=== PATIENT | female | born 1970 | race Caucasian/White ===

== ENCOUNTER 2018-11-11 01:27 | Emergency (ER) | payer MEDICAID ==
[~2018-11-11] VITALS: Ht 167.6 cm; Wt 79.4 kg
[~2018-11-11 01:27] MED LIST: CELEXA40 MG PO; CHEMO DRUG; CLEOCIN HCL300 MG PO; HYDROCODONE-AP1 EA12 PO; NOLVADEX10 MG PO; PERCOCET 5-3251 EACH PO; VALIUM2 MG PO; ZOFRAN 4 MG ORAL4 M1 DIS; ZOFRAN ODT4 MG PO
[2018-11-11] MEDS ORDERED: HERCEPTIN150 MG (01:43)
[2018-11-11 02:07] LABS: ABSOLUTE BASOPHILS 0.1 thou/uL (0.0-0.2); ABSOLUTE EOSINOPHILS 0.2 thou/uL (0.0-0.7); ABSOLUTE LYMPHOCYTES 3.5 thou/uL (0.8-5.3); ABSOLUTE MONOCYTES 0.5 thou/uL (0.0-1.2); ABSOLUTE NEUTROPHILS 5.4 thou/uL (1.6-8.1); BASOPHILS 0.8 %; EOSINOPHILS 2.5 %; HEMATOCRIT 38.7 % (37.0-47.0); HEMOGLOBIN 13.4 gm/dL (12.0-15.0); LYMPHOCYTES 36.4 %; MCH 34.6 pg (26.0-34.0); MCHC 34.5 g/dL (28.0-37.0); MCV 100.1 fL (80.0-100.0); MONOCYTES 4.7 %; MPV 6.8 fl. (7.2-11.1); NUCLEATED RBCS 0 /100WBC; PLATELET COUNT* 274 thou/uL (150-400); POLYS 55.6 %; RBC 3.87 mil/uL (4.20-5.00); RDW-CV 12.4 % (10.5-14.5); WBC 9.7 thou/uL (4.0-11.0)
[2018-11-11 02:28] LABS: CALCIUM 9.3 mg/dL (8.5-10.1); CREATININE 0.9 mg/dL (0.6-1.3); POTASSIUM 3.5 mmol/L (3.5-5.1)
[2018-11-11 02:33] LABS: ALBUMIN 3.4 g/dL (3.4-5.0); TOTAL BILIRUBIN 0.4 mg/dL (<0.1-1.0); TOTAL PROTEIN 7.3 g/dL (6.4-8.2)
[2018-11-11] MEDS ORDERED: DEXAMETHASONE2 MG PO (03:02)
[2018-11-11] MEDS ORDERED: PERCOCET 5-3251 EACH PO (03:02)
[2018-11-11] MEDS ORDERED: ZOFRAN ODT4 MG SUBLING (03:02)
[2018-11-11 03:13] VITALS: BP 134/76
== END 2018-11-11 03:13 | disposition home or self-care (01) ==
LOC: M.ERS 01:27
PROVIDERS: Family Medicine
DX: D33.2 Benign neoplasm of brain, unspecified (principal); F17.210 Nicotine dependence, cigarettes, uncomplicated; Z85.3 Personal history of malignant neoplasm of breast; Z88.0 Allergy status to penicillin